=== PATIENT | female | born 1990 | race Caucasian/White ===

== ENCOUNTER 2021-03-17 00:39 | Emergency (ER) | payer SELFPAY ==
--- NOTE | 2021-03-17 01:00 | NUR ---
Patient was called to be triaged , but was not present in the waiting. Patient was not traiged or seen by [facility]MD.
== END 2021-03-17 01:56 | disposition left against medical advice (07) ==
LOC: ER 01:43
DX: Z53.21 Procedure and treatment not carried out due to patient leaving prior to being seen by health care provider (principal)